=== PATIENT | male | born 1930 | race Caucasian/White ===

== ENCOUNTER 2017-06-17 02:51 | Emergency (ER) | payer OTHER ==
[~2017-06-17 02:51] MED LIST: ARICEPT10 M1 PO; ASPIRIN81 M4 PO; CHLORTHALIDONE25 M1 PO; ENALAPRIL MALEA20 M1 PO; LATANOPROST2.5 ML OPH; MULTIVITAMINS1 EAC9 PO; PLAVIX75 M1 PO; SIMVASTATIN20 M2 PO
--- NOTE | 2017-06-17 03:29 | ED SKIN/ALLERGY COMPLAINT ---
History of Present Illness General Chief Complaint: Skin Rash/ Abcess Stated Complaint: PER PT C/O "ALL OVER BODY ITCH" SINCE 190 Source: patient Exam Limitations: no limitations Vital Signs & Intake/Output Vital Signs & Intake/Output Vital Signs Date Time Temp Pulse Resp B/P B/P Pulse O2 O2 Flow FiO2 Mean Ox Delivery Rate 06/17 0340 Room Air 06/17 0340 96.0 51 18 163/70 98 Room Air Allergies Coded Allergies: No Known Allergies (03/19/17) Reconcile Medications Aspirin (Aspirin*) 81 MG TAB.CHEW 1 TAB PO DAILY CAD (Reported) Clopidogrel Bisulfate (Plavix) 75 MG TABLET 1 TAB PO DAILY CAD (Reported) Donepezil HCl (Aricept) 10 MG TABLET 1 TAB PO QPM DEMENTIA (Reported) Enalapril Maleate 20 MG TABLET 1 TAB PO DAILY HTN (Reported) Hydrocortisone (Ala-Sandip) 2.5 % CREAM..G. 1 STIVEN TOP TID PRN ITCHING 5 DAYS MAX Hydroxyzine HCl 10 MG TABLET 1 TAB PO TID PRN ITCHING Latanoprost 0.005 % DROPS 1 GTT OPH QPM GLAUCOMA (Reported) Multiple Vitamin (Multivitamins) 1 EACH TABLET 1 TAB PO DAILY vitamins ( Reported) Simvastatin (Simvastatin*) 20 MG TABLET 1 TAB PO QPM HLD (Reported) Triage Nurses Notes Reviewed? yes Onset: Gradual Duration: hour(s): Timing: recent history Severity: mild Location: torso, extremities Possible Factors: no cause identified Modifying Factors: Worsens With: scratching. Associated Symptoms: itching HPI: 86 YO gentleman presents with itching on his chest wall, above his buttocks and both arms. he notes there is no rash, "but for some reason, I am really itchy." he notes this has happened before and he helped with a tube. He is otherwise well. Past History Travel History Traveled to [place] past 21 day No Medical History Any Pertinent Medical History? see below for history Neurological: NONE Cardiovascular: CAD, hypertension, hyperlipidemia Respiratory: NONE Gastrointestinal: NONE Hepatic: NONE Renal: NONE Musculoskeletal: NONE Psychiatric: NONE Endocrine: NONE Blood Disorders: NONE Cancer(s): NONE History of MRSA: No History of VRE: No History of CDIFF: No Surgical History Surgical History: CABG Psychosocial History What is your primary language [place] Family History Hx Contributory? No Review of Systems Review of Systems Constitutional: Reports: no symptoms. EENTM: Reports: no symptoms. Respiratory: Reports: no symptoms. Cardiovascular: Reports: no symptoms. GI: Reports: no symptoms. Genitourinary: Reports: no symptoms. Musculoskeletal: Reports: no symptoms. Skin: Reports: no symptoms. Neurological/Psychological: Reports: no symptoms. Hematologic/Endocrine: Reports: no symptoms. Immunologic/Allergic: Reports: no symptoms. All Other Systems: Reviewed and Negative Physical Exam Physical Exam General Appearance: well developed/nourished, mild distress Head: atraumatic Eyes: Bilateral: PERRL, EOMI. Ears, Nose, Throat: normal pharynx, normal ENT inspection, hearing grossly normal Neck: normal inspection, supple Respiratory: normal breath sounds Cardiovascular: regular rate/rhythm Gastrointestinal: soft, non-tender Back: normal inspection Extremities: normal inspection, normal range of motion, no edema Neurologic/Psych: awake, alert, oriented x 3, normal mood/affect Reflexes: 1+: bicep (R), bicep (L), knee (R), knee (L). Lymphatic: no anterior cervical ravi Progress Differential Diagnosis: allergic reaction, asthma, drug reaction, erythema multiforme, meningitis/sepsis Plan of Care: pt with benign exam... will try topical steroids and judicious use of antihistamines. he is otherwise well. Departure Departure Disposition: HOME OR SELF CARE Condition: Stable Clinical Impression Primary Impression: Itching Referrals: Kimberly POLO,Fadi [place] (PCP/Family) Departure Forms: Customer Survey General Discharge Information Prescriptions: Current Visit Scripts Hydrocortisone (Ala-Sandip) 1 STIVEN TOP TID PRN ITCHING #1 TUBE Ref 3 5 DAYS MAX Hydroxyzine HCl 1 TAB PO TID PRN ITCHING #30 TAB Ref 1
[2017-06-17] MEDS ORDERED: HYDROXYZINE HCL10 M1 PO (03:39)
[2017-06-17] MEDS ORDERED: ALA-CORT30 GM TOP (03:39)
[2017-06-17 03:40] VITALS: BP 163/70
== END 2017-06-17 04:02 ==
LOC: ERH 02:51
DX: L29.9 Pruritus, unspecified (principal)